=== PATIENT | female | born 1940 | race Caucasian/White ===

== ENCOUNTER 2021-01-18 16:55 | Inpatient (IN) | payer MEDICARE ==
[~2021-01-18] VITALS: Ht 152.4 cm; Wt 74.8 kg
[2021-01-18 17:25] LABS: BASOPHILS % 0.4 % (0.0-1.0); EOSINOPHILS # (AUTO) 0.1 (0.0-0.4); HEMATOCRIT 33.3 % (34.2-44.1); HEMOGLOBIN 11.1 g/dL (12.0-16.0); LYMPHOCYTES # (AUTO) 1.8 (1.0-3.2); LYMPHOCYTES % 25.4 % (18.0-39.1); MEAN CORPUSCULAR HEMOGLOBIN 31.9 pg (28-32); MEAN CORPUSCULAR HGB CONC 33.3 g/dL (31-35); MEAN CORPUSCULAR VOLUME 95.7 fL (81-99); MONOCYTES # (AUTO) 0.6 (0.2-0.8); MONOCYTES % 8.8 % (4.4-11.3); NEUTROPHILS # (AUTO) 4.5 (2.1-6.9); PLATELET COUNT 164 x10e3/uL (140-360); RED BLOOD COUNT 3.48 x10e6/uL (3.6-5.1); RED CELL DISTRIBUTION WIDTH 13.3 % (11.7-14.4)
[2021-01-18 17:36] LABS: ALBUMIN 2.8 g/dL (3.5-5.0); ALBUMIN/GLOBULIN RATIO 0.8 (0.8-2.0); ANION GAP 14.7 mmol/L (8-16); CALCIUM 8.4 mg/dL (8.4-10.2); CREATININE, SERUM 1.42 mg/dL (0.57-1.11); POTASSIUM 3.7 mmol/L (3.5-5.1)
[2021-01-18 17:44] LABS: CLARITY,URINE SL CLOUDY (CLEAR); COLOR,URINE YELLOW (YELLOW); LEUKOCYTE ESTERASE ,URINE SMALL (NEGATIVE); NITRITE,URINE NEGATIVE (NEGATIVE); PROTEIN,URINE DIPSTICK 2+ (NEGATIVE)
[2021-01-18 17:45] LABS: KETONES,URINE NEGATIVE (NEGATIVE); URINE UROBILINOGEN 2 mg/dL (0.2 - 1)
[2021-01-18 17:55] LABS: BACTERIA,URINE MANY /HPF; EPITHELIAL CELLS,URINE MODERATE /LPF; WBC,URINE (MAN) 21-50 /HPF (0-5)
[2021-01-18] MEDS ORDERED: CEFTRIAXONE SOD 1 GM/50 ML BAG IV SCH (18:15)
[2021-01-18] MEDS: CEFTRIAXONE SOD 1 GM in SODIUM CHLORIDE 0.9% 50ML 50 ML IV SCH (18:32)
[2021-01-18] MEDS ORDERED: ONDANSETRON HCL INJ 2MG/ML 2ML 2 MG/ML VIAL IV PRN (18:45)
[2021-01-18] MEDS ORDERED: SODIUM CHLORIDE FLUSH 10 ML SYR INJ PRN (18:45)
[2021-01-18 21:52] VITALS: BP 123/79
[2021-01-18 21:55] VITALS: BP 123/79
[2021-01-19] VITALS (8 sets, daily range): BP systolic 93–111; BP diastolic 53–73
[2021-01-19] MEDS ORDERED: WARFARIN SODIUM3 MG PO (01:06)
[2021-01-19] MEDS ORDERED: LIPITOR20 MG PO (01:06)
[2021-01-19] MEDS ORDERED: FOLIC ACID-VIT1 EACH PO (01:06)
[2021-01-19] MEDS ORDERED: ULTRAM50 MG PO (01:06)
[2021-01-19] MEDS ORDERED: METOPROLOL TART25 MG PO (01:06)
[2021-01-19] MEDS ORDERED: SYNTHROID100 MCG PO (01:06)
[2021-01-19] MEDS ORDERED: ARICEPT10 MG PO (01:06)
[2021-01-19] MEDS: ACETAMINOPHEN 325 MG TAB PO PRN (04:42)
[2021-01-19 05:48] LABS: BASOPHILS % 0.7 % (0.0-1.0); EOSINOPHILS # (AUTO) 0.1 (0.0-0.4); EOSINOPHILS % 1.7 % (0.0-6.0); HEMATOCRIT 30.3 % (34.2-44.1); HEMOGLOBIN 10.3 g/dL (12.0-16.0); LYMPHOCYTES # (AUTO) 1.2 (1.0-3.2); LYMPHOCYTES % 20.7 % (18.0-39.1); MEAN CORPUSCULAR HEMOGLOBIN 31.7 pg (28-32); MEAN CORPUSCULAR VOLUME 93.2 fL (81-99); MONOCYTES # (AUTO) 0.5 (0.2-0.8); MONOCYTES % 9.2 % (4.4-11.3); NEUTROPHILS % 67.4 % (38.7-80.0); PLATELET COUNT 150 x10e3/uL (140-360); RED BLOOD COUNT 3.25 x10e6/uL (3.6-5.1); RED CELL DISTRIBUTION WIDTH 13.3 % (11.7-14.4)
[2021-01-19 06:13] LABS: CREATINE KINASE MB 0.7 ng/mL (0-5.0)
[2021-01-19 06:32] LABS: ALBUMIN 2.6 g/dL (3.5-5.0); ALBUMIN/GLOBULIN RATIO 0.8 (0.8-2.0); ALKALINE PHOSPHATASE 97 IU/L (40-150); ANION GAP 12.6 mmol/L (8-16); BLOOD UREA NITROGEN 16 mg/dL (7-26); BUN/CREATININE RATIO 11 (6-25); CALCIUM 8.5 mg/dL (8.4-10.2); CARBON DIOXIDE 23 mmol/L (22-29); CHLORIDE 104 mmol/L (98-107); CREATININE, SERUM 1.49 mg/dL (0.57-1.11); EST GLOMERULAR FILTRATION RATE 34 ML/MIN (60-); GLUCOSE 97 mg/dL (74-118); POTASSIUM 3.6 mmol/L (3.5-5.1); SODIUM 136 mmol/L (136-145)
[2021-01-19 06:42] LABS: ALANINE AMINOTRANSFERASE < 6 IU/L (0-55)
[2021-01-19] MEDS ORDERED: PREDNISONE 20 MG TAB PO SCH (12:00)
[2021-01-19 14:15] LABS: INR 1.13; PROTHROMBIN TIME 15.1 seconds (11.9-14.5)
[2021-01-19 14:26] LABS: CREATINE KINASE MB 0.9 ng/mL (0-5.0)
[2021-01-19] MEDS: WARFARIN SOD 3 MG TAB PO SCH (16:55)
[2021-01-19] MEDS: TRAMADOL HCL 50 MG TAB PO PRN ×2 (16:55→20:36)
[2021-01-19] MEDS: CEFTRIAXONE SOD 1 GM in SODIUM CHLORIDE 0.9% 50ML 50 ML IV SCH (17:38)
[2021-01-19] MEDS: ATORVASTATIN 20 MG TAB PO SCH (20:36)
[2021-01-19] MEDS: DONEPEZIL HCL 5 MG TAB PO SCH (20:36)
[2021-01-20] VITALS (8 sets, daily range): BP systolic 107–142; BP diastolic 58–75
[2021-01-20] MEDS: LEVOTHYROXINE SODIUM 100 MCG TAB PO SCH (06:00)
[2021-01-20 16:33] LABS: INR 1.09; PROTHROMBIN TIME 14.7 seconds (11.9-14.5)
[2021-01-20] MEDS: CEFTRIAXONE SOD 1 GM in SODIUM CHLORIDE 0.9% 50ML 50 ML IV SCH (16:48)
[2021-01-20] MEDS: WARFARIN SOD 3 MG TAB PO SCH (16:49)
[2021-01-20] MEDS: DONEPEZIL HCL 5 MG TAB PO SCH (20:45)
[2021-01-20] MEDS: ATORVASTATIN 20 MG TAB PO SCH (20:45)
[2021-01-20] MEDS: TRAMADOL HCL 50 MG TAB PO PRN (22:45)
[2021-01-21] VITALS (8 sets, daily range): BP systolic 101–124; BP diastolic 50–70
[2021-01-21] MEDS ORDERED: HALOPERIDOL LACTATE 5 MG/ML VIAL IV ONE (03:15)
[2021-01-21] MEDS ORDERED: ONDANSETRON HCL 4 MG ORAL DISINTEGRATING TAB PO PRN (08:00)
[2021-01-21] MEDS: LEVOTHYROXINE SODIUM 100 MCG TAB PO SCH (10:00)
[2021-01-21] MEDS: MEMANTINE 10 MG TAB PO SCH (10:00)
[2021-01-21] MEDS: QUETIAPINE FUMARATE 25 MG TAB PO SCH ×2 (11:41→21:23)
[2021-01-21] MEDS: WARFARIN SOD 3 MG TAB PO SCH (17:53)
[2021-01-21] MEDS: CEFTRIAXONE SOD 1 GM in SODIUM CHLORIDE 0.9% 50ML 50 ML IV SCH (17:53)
[2021-01-21] MEDS: ATORVASTATIN 20 MG TAB PO SCH (21:23)
[2021-01-21] MEDS: DONEPEZIL HCL 5 MG TAB PO SCH (21:23)
[2021-01-22] VITALS (8 sets, daily range): BP systolic 97–119; BP diastolic 57–85
[2021-01-22] MEDS: LEVOTHYROXINE SODIUM 100 MCG TAB PO SCH ×2 (06:00→06:01)
[2021-01-22] MEDS: MEMANTINE 10 MG TAB PO SCH (09:00)
[2021-01-22] MEDS: WARFARIN SOD 3 MG TAB PO SCH ×2 (09:21→20:14)
[2021-01-22] MEDS ORDERED: VANCOMYCIN 1GM/NS 250 ML 250 ML IV ONE (14:45)
[2021-01-22] MEDS: SODIUM CHLORIDE 0.45% 1,000 ML IV SCH (16:47)
[2021-01-22 17:54] LABS: BASOPHILS % 0.9 % (0.0-1.0); EOSINOPHILS # (AUTO) 0.3 (0.0-0.4); EOSINOPHILS % 5.9 % (0.0-6.0); HEMATOCRIT 34.4 % (34.2-44.1); HEMOGLOBIN 11.5 g/dL (12.0-16.0); LYMPHOCYTES # (AUTO) 1.2 (1.0-3.2); LYMPHOCYTES % 25.4 % (18.0-39.1); MEAN CORPUSCULAR HEMOGLOBIN 31.3 pg (28-32); MEAN CORPUSCULAR HGB CONC 33.4 g/dL (31-35); MEAN CORPUSCULAR VOLUME 93.5 fL (81-99); MONOCYTES # (AUTO) 0.3 (0.2-0.8); MONOCYTES % 7.4 % (4.4-11.3); NEUTROPHILS # (AUTO) 2.8 (2.1-6.9); NEUTROPHILS % 60.2 % (38.7-80.0); PLATELET COUNT 143 x10e3/uL (140-360); RED BLOOD COUNT 3.68 x10e6/uL (3.6-5.1); RED CELL DISTRIBUTION WIDTH 13.3 % (11.7-14.4)
[2021-01-22 18:13] LABS: INR 1.13; PROTHROMBIN TIME 15.2 seconds (11.9-14.5)
[2021-01-22] MEDS: DONEPEZIL HCL 5 MG TAB PO SCH (20:13)
[2021-01-22] MEDS: ATORVASTATIN 40 MG TAB PO SCH (20:13)
[2021-01-22] MEDS: QUETIAPINE FUMARATE 25 MG TAB PO SCH (20:13)
[2021-01-22] MEDS: TRAMADOL HCL 50 MG TAB PO PRN (20:15)
[2021-01-23] VITALS (8 sets, daily range): BP systolic 87–134; BP diastolic 56–76
[2021-01-23 04:50] LABS: BASOPHILS % 0.4 % (0.0-1.0); EOSINOPHILS # (AUTO) 0.1 (0.0-0.4); HEMATOCRIT 32.8 % (34.2-44.1); HEMOGLOBIN 10.9 g/dL (12.0-16.0); LYMPHOCYTES # (AUTO) 0.8 (1.0-3.2); LYMPHOCYTES % 16.6 % (18.0-39.1); MEAN CORPUSCULAR HGB CONC 33.2 g/dL (31-35); MEAN CORPUSCULAR VOLUME 93.2 fL (81-99); MONOCYTES # (AUTO) 0.4 (0.2-0.8); NEUTROPHILS # (AUTO) 3.3 (2.1-6.9); NEUTROPHILS % 70.8 % (38.7-80.0); PLATELET COUNT 143 x10e3/uL (140-360); RED BLOOD COUNT 3.52 x10e6/uL (3.6-5.1); RED CELL DISTRIBUTION WIDTH 13.2 % (11.7-14.4)
[2021-01-23 05:01] LABS: INR 1.16; PROTHROMBIN TIME 15.5 seconds (11.9-14.5)
[2021-01-23 05:12] LABS: ANION GAP 12.6 mmol/L (8-16); CALCIUM 8.4 mg/dL (8.4-10.2); CREATININE, SERUM 1.29 mg/dL (0.57-1.11); POTASSIUM 3.6 mmol/L (3.5-5.1)
[2021-01-23] MEDS: LEVOTHYROXINE SODIUM 100 MCG TAB PO SCH (05:50)
[2021-01-23 07:05] LABS: CLARITY,URINE CLEAR (CLEAR); COLOR,URINE YELLOW (YELLOW); KETONES,URINE NEGATIVE (NEGATIVE); LEUKOCYTE ESTERASE ,URINE TRACE (NEGATIVE); NITRITE,URINE NEGATIVE (NEGATIVE); PROTEIN,URINE DIPSTICK NEGATIVE (NEGATIVE); URINE UROBILINOGEN 0.2 mg/dL (0.2 - 1)
[2021-01-23 07:23] LABS: BACTERIA,URINE FEW /HPF; EPITHELIAL CELLS,URINE FEW /LPF; RBC,URINE 0-5 /HPF (0-5)
[2021-01-23 07:24] LABS: YEAST,URINE FEW
[2021-01-23] MEDS: MEMANTINE 10 MG TAB PO SCH (09:00)
[2021-01-23] MEDS: SODIUM CHLORIDE 0.45% 1,000 ML IV SCH (09:34)
[2021-01-23] MEDS: QUETIAPINE FUMARATE 25 MG TAB PO SCH (20:32)
[2021-01-23] MEDS: DONEPEZIL HCL 5 MG TAB PO SCH (20:32)
[2021-01-23] MEDS: DIVALPROEX SODIUM 250 MG TAB...DR PO SCH (20:32)
[2021-01-23] MEDS: ATORVASTATIN 40 MG TAB PO SCH (20:32)
[2021-01-23] MEDS: ACETAMINOPHEN 325 MG TAB PO PRN (20:56)
[2021-01-24 00:52] VITALS: BP 85/46
[2021-01-24 04:38] VITALS: BP 118/57
[2021-01-24 07:47] VITALS: BP 119/68
[2021-01-24] MEDS: SODIUM CHLORIDE 0.45% 1,000 ML IV SCH (08:20)
[2021-01-24 08:47] VITALS: BP 119/68
[2021-01-24] MEDS: DIVALPROEX SODIUM 250 MG TAB...DR PO SCH (13:30)
[2021-01-24] MEDS: MEMANTINE 10 MG TAB PO SCH (13:30)
== END 2021-01-24 14:20 | disposition hospice, inpatient (51) | DRG 689 ==
LOC: ER 16:59 → ERHOLD 18:39 → MED/SURG 21:45 → OBSVTOIN 01-19 16:50
PROVIDERS: ADMIT Internal Medicine; ATTEND Internal Medicine
DX: N39.0 Urinary tract infection, site not specified (principal); G93.41 Metabolic encephalopathy; F02.81 Dementia in other diseases classified elsewhere, unspecified severity, with behavioral disturbance; R55 Syncope and collapse; E78.5 Hyperlipidemia, unspecified; M10.9 Gout, unspecified; E03.9 Hypothyroidism, unspecified; Z74.01 Bed confinement status; B95.8 Unspecified staphylococcus as the cause of diseases classified elsewhere; Z95.0 Presence of cardiac pacemaker; G30.9 Alzheimer's disease, unspecified; Z20.822 Contact with and (suspected) exposure to COVID-19
CPT/HCPCS: 36415; 51700; 70450; 71045; 78580; 80048; 80053; 81001; 82550; 82553; 84146; 84484; 85025; 85610; 87086; 87186; 93005; 93306; 93880; 95812; 99284; A9540; G0378; J0696; J1630; J3370; J7512; U0002